=== PATIENT | female | born 1930 | race Caucasian/White ===

== ENCOUNTER 2017-03-17 08:57 | Day surgery (SDC) | payer MEDICARE, BC ==
--- NOTE | 2017-03-16 10:44 | CR ---
PREOPERATIVE EVALUATION AND CONSULTATION DATE OF CONSULTATION: 03/09/2017 CONSULTING PHYSICIAN: Richie Whiting MD REQUESTING SURGEON: Dr. Sophie Draper PROPOSED PROCEDURE: Uteroscopy completed at [facility]. CHIEF COMPLAINT: Preoperative evaluation prior to procedure. HISTORY OF PRESENT ILLNESS: Very pleasant 86-year-old patient of mine who presented today prior to a hysteroscopy. The patient is seeing Dr. Draper for what she describes as "dropped bladder." The patient does use a pessary at this point in time for what appears to be a complete uterovaginal prolapse, as diagnosed by Dr. Draper. She has significant incontinence of urine without the sensation of voiding. This is quite problematic and the patient has used a pessary with some success, but it does not meet her expectations. She is looking forward to Dr. Draper' evaluation. The patient has hypertension and left ventricular hypertrophy, but denies any chest pain on exertion, palpitations, or other cardiac symptoms. She is a nonsmoker, although she does have a history of smoking one pack a day of cigarettes on and off for a number of years, quitting in her early 60s. She has no history of asthma or bronchospasm. She denies symptoms of obstructive sleep apnea or history of issues with sleep apnea or malignant hypothermia. Otherwise , her blood pressure is generally controlled. She did have surgery for cataract in early 2015 without difficulty. She has chronic kidney disease with a baseline creatinine of 1.5. 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 Notes she generally feels well without any new symptoms or issues at this point in time. PAST MEDICAL HISTORY: 1. Hypertension with LVH. 2. Seasonal allergies. 3. Chronic kidney disease stage III. 4. Hyperlipidemia. 5. Vitamin D deficiency. 6. History of a basal cell cancer and a melanoma in situ of the face. 7. Prolapsed bladder and uterus. PAST SURGICAL HISTORY: 1. Right elbow surgery with Dr. Livingston 07/02/2011. 2. Ankle fracture [place] [address] Bass. 3. Spontaneous vaginal delivery times five. 4. Open reduction, internal fixation (ORIF) of the left wrist. 5. Cataract extraction, Dr. Duncan, [facility] 2015. MEDICATIONS: - amlodipine/benazepril 10/40 mg by mouth daily - hydrochlorothiazide 12.5 mg by mouth daily - metoprolol succinate 100 mg daily ALLERGIES: No known drug allergies. FAMILY HISTORY: Father of congestive heart failure. Mother of unknown causes, she had a mastectomy for breast cancer prior to that. She has a daughter who had breast cancer diagnosis at age 45. A second daughter with throat cancer but survived and is doing well. SOCIAL HISTORY: The patient is a . Her Preet at age 71 of an acute myocardial infarction. The patient was a homemaker. She has five children, all local. She has a brother, Bladimir Wright III, and a sister Osiris Ziegler, with whom she is close with. She is quite independent visiting with friends and going on trips with the family. She is a former smoker, smoked about one pack of cigarettes a day in her 20s until her 60s and then quit completely. She does have two ounces of scotch a day in the evening but no other alcohol. Functional capacity is limited without regular exercise. REVIEW OF SYSTEMS: As per history of present illness, otherwise 10-system review is negative. PHYSICAL EXAMINATION: VITAL SIGNS: Weight is 143 pounds, height of 5 feet 3 inches, pulse is 72, blood pressure 138/54, Body Mass Index (BMI) of 25.3, oxygen saturation were above 90. GENERAL: The patient appears her stated age. She appears at baseline health, well developed. No acute distress. Nontoxic. Alert and oriented times three. HEENT: Face shows a history of surgeries to the cancers but no other trauma. Normocephalic. Pupils are equal, round and reactive to light and accommodation. Extraocular muscles intact. No lesions of the lid or conjunctivae. Oral cavity , oropharynx are benign. External ears benign. NECK: Supple with no lymphadenopathy or thyromegaly. HEART: Regular rate and rhythm. S1, S2. LUNGS: Clear to auscultation bilaterally. No rales, rhonchi or wheezes. ABDOMEN: Soft, nontender, nondistended. EXTREMITIES: No clubbing, cyanosis or edema. PREOPERATIVE LABORATORIES: Completed on the way out and these included a normal CBC, normal CMP except BUN of 32, creatinine 1.3 (baseline), and a random blood sugar of 114. This gives her a GFR of 39. Vitamin D level of 52.2 (prior 23.5). ASSESSMENT AND PLAN: 1. Preoperative evaluation and consultation. At this point in time, the patient does not have any major risk factors. She does have known hypertension with left ventricular hypertrophy and generally this has been shown to be controlled, both as an outpatient and inpatient. We will continue to optimize this. Otherwise, no clear respiratory issues except for a history of smoking. No anesthesia issues. She is at low to intermediate risk for a low risk procedure. Expect however at age 86 that she will be monitored closely. If you have any other questions or concerns, please call me at [phone]. 2. Urinary symptoms due to cystocele and complete prolapse of the bladder and uterus. The patient looks forward to the procedure to evaluate and treat her present condition, having failed a pessary. 3. Hypertensive chronic kidney disease. Good control on present medication, we will continue. Chronic kidney disease is better than her baseline today at 1.3, we will continue to monitor and avoid nephrotoxins. 4. Vitamin D deficiency. Significant improvement on laboratories drawn after her visit. We will continue to monitor. 5. Personal history of neoplasm of the skin. The patient understands the issues regarding the skin cancer and has assured me that she will followup with dermatology. 6. Hypertensive heart disease without heart failure. The patient does have a known LVH. She however denies symptoms of CHF. We will continue to monitor and control her blood pressure appropriately. 7. Ongoing care. I am going to see her again as scheduled. We will followup on laboratories and if she has new problems or issues sooner, she will let us know. It is notable that her EKG did show sinus rhythm with a right axis deviation and a left ventricular hyperplasia, which was unchanged from her prior EKG on 06/01/2015. AMBER
[~2017-03-17] VITALS: Ht 160 cm; Wt 64.0 kg
[~2017-03-17 08:57] MED LIST: AMLO10CA29 PO; HYDR12CA PO; METO1TAB33 PO; PERC5TAB8 OR
[2017-03-17] MEDS ORDERED: LR 1,000 ML IV ONE (09:15)
[2017-03-17] MEDS ORDERED: MIDAZOLAM INJ 2 MG/2 ML VIAL (J2250) As Ordered ONE (09:50)
[2017-03-17] MEDS ORDERED: PROPOFOL 200 MG/20 ML VIAL As Ordered ONE (09:50)
[2017-03-17] MEDS ORDERED: LIDOCAINE 2% INJ 100 MG/5 ML SDV (FOR ANES.) As Ordered ONE (09:50)
[2017-03-17] MEDS ORDERED: fentaNYL 100 MCG/2 ML INJECTION (J3010) As Ordered ONE (09:50)
[2017-03-17] MEDS ORDERED: ONDANSETRON 4MG/2ML VIAL (J2405) As Ordered ONE (09:51)
[2017-03-17] MEDS ORDERED: BUPIVACAINE HCL 0.5% 30 ML VIAL As Ordered ONE (10:34)
[2017-03-17] MEDS ORDERED: ceFAZolin 1GM INJ (J0690) As Ordered ONE (10:56)
[2017-03-17] MEDS ORDERED: ePHEDrine SULFATE 25 MG/5 ML(5MG/ML) SYRINGE As Ordered ONE (11:21)
[2017-03-17] MEDS ORDERED: NORCO, ANEXSIA 5/325MG TABLET (HYDROcodone/ACETAMINOPHEN) PO PRN (12:15)
[2017-03-17] MEDS ORDERED: LR 1,000 ML IV SCH ×2 (12:15)
[2017-03-17] MEDS ORDERED: METOCLOPRAMIDE INJ 10MG/2ML VIAL (J2765) IV PRN (12:15)
[2017-03-17] MEDS ORDERED: ONDANSETRON 4MG/2ML VIAL (J2405) IV PRN (12:15)
[2017-03-17] MEDS ORDERED: fentaNYL 100 MCG/2 ML INJECTION (J3010) IV PRN (12:15)
[2017-03-17] MEDS ORDERED: IBUPROFEN 400 MG TAB PO PRN (12:15)
[2017-03-17 13:30] VITALS: BP 165/82
--- NOTE | 2017-03-17 16:46 | RO ---
DATE OF PROCEDURE: 03/17/2017 PREOPERATIVE DIAGNOSIS: Intrinsic sphincteric deficiency, stress urinary incontinence. POSTOPERATIVE DIAGNOSIS: Intrinsic sphincteric deficiency, stress urinary incontinence. PROCEDURE: Cystourethroscopy with periurethral bulking using Macroplastique. SURGEON: Dr. Sophie Draper SOLAR SALES REPRESENTATIVE AND ASSESSOR: None. ANESTHESIA: LMA. SPECIMENS: None. DESCRIPTION OF PROCEDURE: Brief description of procedure and findings: Ruchi was brought to the operating room where sufficient LMA anesthesia was induced, and she was prepped, draped and positioned in the usual sterile fashion. The pessary, of course, was removed and then she was prepped and, of course, at the end of the case, her pessary was replaced. After prepping and positioning, cystourethroscopy was carried out. The patient has a urethral caruncle. This was not treated in any way during the case and has normal bladder mucosa, normal ureteral orifices and a relatively short urethra consistent with her age and size. Periurethral Marcaine 2-1/2 mL of 0.50% Marcaine were placed laterally in the periurethral block and then the Macroplastique was set up and using the Macroplastique needle, 1-3/4 ampules of Macroplastique were placed at 4:30 and 8:30 with good coaptation of the urethral russo achieved with this injection. Of course, after that placement, the pessary was placed back in and the procedure was ended. Estimated blood loss for the procedure was essentially nothing. Fluid replacement was crystalloid. Complications: None. Condition and Disposition: Ruchi tolerated the procedure well and was recovering in the recovery room in good condition.
== END 2017-03-17 13:35 | disposition home or self-care (01) ==
LOC: M SDC 08:57
PROVIDERS: ATTEND Obstetrics & Gynecology
DX: N36.42 Intrinsic sphincter deficiency (ISD) (principal); N39.3 Stress incontinence (female) (male); I10 Essential (primary) hypertension; Z87.891 Personal history of nicotine dependence; Z79.899 Other long term (current) drug therapy
CPT/HCPCS: 51715; C1815; J0690; J2250; J2405; J3010

== ENCOUNTER 2017-10-14 14:21 | Emergency (ER) | payer MEDICARE, BC | END 2017-10-14 15:42 | disposition home or self-care (01) | LOC: M ED 14:21 | DX: T18.120A Food in esophagus causing compression of trachea, initial encounter (principal); X58.XXXA Exposure to other specified factors, initial encounter; Y92.89 Other specified places as the place of occurrence of the external cause; I10 Essential (primary) hypertension; E78.9 Disorder of lipoprotein metabolism, unspecified; Z79.899 Other long term (current) drug therapy | CPT/HCPCS: 99283 ==

== ENCOUNTER 2018-03-11 05:26 | Emergency (ER) | payer MEDICARE, BC ==
[2018-03-11 06:41] LABS: BASO % 0.7 % (0.0-1.0); EOS # 0.4 10^3/uL (0.0-0.50); EOS % 6.5 % (0.0-3.0); HEMATOCRIT 40.7 % (36.0-47.0); HEMOGLOBIN 13.4 g/dl (12.0-15.5); IMMATURE GRANULOCYTE % 0.3 % (0-3.0); LYMPH # 1.8 10^3/uL (1.5-4.5); LYMPH % 29.1 % (24.0-44.0); MEAN CORPUSCULAR HEMOGLOBIN 31.9 pg (27.0-33.0); MEAN CORPUSCULAR HGB CONC 32.9 g/dl (32.0-36.5); MEAN CORPUSCULAR VOLUME 96.9 fl (80.0-96.0); MONO # 0.5 10^3/uL (0.0-0.8); MONO % 8.1 % (0.0-5.0); NEUTROPHILS # 3.3 10^3/uL (1.8-7.7); NEUTROPHILS % 55.3 % (36.0-66.0); PLATELET COUNT, AUTOMATED 260 10^3/uL (150-450)
[2018-03-11] MEDS ORDERED: LIDOCAINE 1% MDV 20ML VIAL As Ordered (07:01)
[2018-03-11] MEDS: LIDOCAINE 1% SDV INJ 30 ML VIAL SC (07:03)
[2018-03-11 07:18] LABS: ANION GAP 9 MEQ/L (8-16); BLOOD UREA NITROGEN 36 MG/DL (7-18); CALCIUM LEVEL 8.7 MG/DL (8.8-10.2); CARBON DIOXIDE LEVEL 26 MEQ/L (21-32); CHLORIDE LEVEL 108 MEQ/L (98-107); CPK CREATINE PHOSPHOKINASE 78 U/L (26-192); CREATININE FOR GFR 1.35 MG/DL (0.55-1.30); GLOMERULAR FILTRATION RATE 39.7 (>32); GLUCOSE, FASTING 89 MG/DL (70-100); MB/CK RELATIVE INDEX 1.79 (< OR =4); POTASSIUM SERUM 3.9 MEQ/L (3.5-5.1); SODIUM LEVEL 143 MEQ/L (136-145); TROPONIN I < 0.02 NG/ML (< 0.10)
[2018-03-11] MEDS: NS 500 ML IV (07:18)
== END 2018-03-11 08:18 | disposition home or self-care (01) ==
LOC: M ED 05:26
DX: S01.412A Laceration without foreign body of left cheek and temporomandibular area, initial encounter (principal); W01.190A Fall on same level from slipping, tripping and stumbling with subsequent striking against furniture, initial encounter; Y92.013 Bedroom of single-family (private) house as the place of occurrence of the external cause; I10 Essential (primary) hypertension
CPT/HCPCS: 70450

== ENCOUNTER → 2018-04-27 | Outpatient (CLI) | payer MEDICARE, BC ==
[2018-04-29 00:58] LABS: (LD) FRACTION 1 25 % (17-32); (LD) FRACTION 2 32 % (25-40); (LD) FRACTION 3 22 % (17-27); (LD) FRACTION 4 9 % (5-13); (LD) FRACTION 5 12 % (4-20); LDH 183 IU/L (119-226)
== END ==
LOC: M LAB 10:42
DX: C43.62 Malignant melanoma of left upper limb, including shoulder (principal)
CPT/HCPCS: 71046

== ENCOUNTER → 2018-07-25 | Outpatient (CLI) | payer MEDICARE, BC ==
[~2018-07-25] MED LIST changes: +ACET-683 PO; +DIPH50CA PO; +GASTROGRAFIN SOLUTION 30ML (Q9963) As Ordered ONE; +ISOVUE-370 76% 100ML VIAL (Q9967) As Ordered ONE; +TRIA1CR80 EXT
--- NOTE | 2018-07-25 14:14 | REP ---
CT Head without and with contrast HISTORY: Melanoma CONTRAST: Isovue 371 100 ml COMPARISON: 03/11/2018 An area of decreased attenuation is present in the right occipital lobe. There is dilatation of the overlying cortical sulci and atrium and occipital horn of the right lateral ventricle. This represents an old infarction. Areas of decreased attenuation are present in the periventricular white matter. This represents small-vessel ischemic disease. There is no intraparenchymal hemorrhage, acute infarct, mass or midline shift. There is no abnormal enhancement. The ventricular system and cortical sulci as well as subarachnoid space in the posterior fossa are dilated consistent with mild volume loss. There is no extra cerebral collection. Mucosal thickening is present in the ethmoid , left frontal and sphenoid sinuses. Impression: 1. 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 2. Small vessel ischemic disease. 3. Mild volume loss. Electronically Signed by Dagoberto Smith MD 07/25/2018 02:05 P
--- NOTE | 2018-07-25 14:22 | REP ---
Clinical: History of melanoma. Technique: Axial contrast enhanced images from the lung bases to the pubic symphysis using oral (per protocol) and 100 ml Isovue 370 intravenous contrast material with delayed images of the abdomen as well as coronal and sagittal re-formations. Comparison: None. Findings: Lung bases are relatively clear with minimal presumed scarring in the lingula and right base. Calcified granuloma at the right lung base noted. Liver, spleen, pancreas, bilateral adrenal glands and left kidney appear normal. Cholelithiasis noted without evidence for acute cholecystitis. Splenic calcifications suggest prior granulomatous disease. Atrophic appearance to the right kidney. The enteric system is without obstruction or acute inflammatory process. Normal terminal ileum and appendix identified in the right lower quadrant. Colonic and sigmoid diverticulosis noted without acute diverticulitis. Pelvis demonstrates normal bladder and age-appropriate uterus/adnexa. Pessary noted in satisfactory position. No ascites. No free air. No significant intraperitoneal or retroperitoneal adenopathy. Significant atherosclerotic changes to the aorta and branch vessels including origins of the renal arteries which may be related to the above-mentioned atrophic right kidney. Osseous structures without focal osseous abnormality. Impression: 1. Evidence of prior granulomatous disease. 2. Cholelithiasis. 3. Sigmoid diverticula without acute diverticulitis. 4. Atrophic appearance the right kidney may be related to atherosclerotic disease and stenosis of the right renal artery. 5. No ascites, adenopathy, focal inflammatory changes or evidence for metastatic disease. Electronically Signed by Nikolai Santoyo MD 07/25/2018 02:14 P
--- NOTE | 2018-07-25 14:26 | REP ---
Clinical: Melanoma. Technique: Axial contrast enhanced images from the thoracic inlet to the upper abdomen with coronal and sagittal re-formations using 100 ml Isovue 370 intravenous contrast material. Comparison: None. Findings: Lung horvath demonstrate scattered age-related interstitial changes along with minimal linear scarring at the lingula and right lower lobe. Calcified granuloma identified in the right lower lobe. No consolidation, significant nodule or mass lesion. No pleural effusion. No pneumothorax. Tracheobronchial tree is patent. No significant adenopathy is appreciated. Extensive atherosclerotic disease to the thoracic aorta and coronary arteries noted without aortic aneurysm or cardiomegaly. Pericardial effusion. Surrounding musculoskeletal structures demonstrate age-related changes. There is a focal lytic area along the right side of the T11 vertebral body which is nonspecific and while this may represent age-related change, underlying metastatic focus cannot definitively be excluded. Impression: 1. Atherosclerotic disease to the thoracic aorta and coronary arteries. 2. No acute mediastinal or pleuroparenchymal process appreciated. 3. Evidence for prior granulomatous disease. 4. Lytic area along the right side of the T11 vertebral bodies. While this may represent chronic age-related change, solitary metastatic focus given the patient's history of malignancy cannot be excluded. Follow-up may be warranted. Electronically Signed by Nikolai Santoyo MD 07/25/2018 02:18 P
== END ==
LOC: M RAD 11:28
PROVIDERS: ATTEND Internal Medicine Medical Oncology
DX: C43.9 Malignant melanoma of skin, unspecified (principal); Z86.73 Personal history of transient ischemic attack (TIA), and cerebral infarction without residual deficits; I25.10 Atherosclerotic heart disease of native coronary artery without angina pectoris; I70.0 Atherosclerosis of aorta; M89.8X8 Other specified disorders of bone, other site; K80.20 Calculus of gallbladder without cholecystitis without obstruction; K57.30 Diverticulosis of large intestine without perforation or abscess without bleeding; N26.1 Atrophy of kidney (terminal)
CPT/HCPCS: 70470; 71260; 74177; Q9963; Q9967

== ENCOUNTER → 2018-08-03 | Outpatient (CLI) | payer MEDICARE, BC ==
[~2018-08-03] MED LIST changes: -GASTROGRAFIN SOLUTION 30ML (Q9963) As Ordered ONE; -ISOVUE-370 76% 100ML VIAL (Q9967) As Ordered ONE
--- NOTE | 2018-08-03 12:07 | REP ---
WHOLE BODY RADIONUCLIDE BONE SCAN: HISTORY: History of melanoma. Lytic lesion at T11 on CT scan. Evaluate for metastasis. Comparison CT study July 25, 2018. TECHNIQUE: 21.6 mCi technetium 99m MDP is injected and standard whole body bone scan imaging is acquired. SCINTIGRAPHIC FINDINGS: There is an arthritic uptake pattern seen in the wrists, elbows, AC joints, and knees as well as the feet bilaterally. There is degenerative disc and facet uptake pattern at L4-5 and L5-S1 in the lumbar spine. There is no abnormal uptake in or about the T11 vertebral body in the lower thoracic spine. The lack of increased uptake and the CT appearance suggests that the lytic lesion seen by CT at T11 is a benign hemangioma. Suggest followup. There is uptake in bilateral kidneys and the urinary bladder. No other abnormal uptake is seen. IMPRESSION: There is no evidence to suggest skeletal metastatic disease. No abnormal uptake is seen in the lower thoracic spine. 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 Consider followup CT study. Electronically Signed by Savage Brooks MD 08/03/2018 01:39 P
== END ==
LOC: M RAD 07:53
PROVIDERS: ATTEND Internal Medicine Medical Oncology
DX: C43.9 Malignant melanoma of skin, unspecified (principal)
CPT/HCPCS: 78306; A9503

== ENCOUNTER → 2019-11-19 | Outpatient (CLI) | payer MEDICARE, BC ==
[~2019-11-19] MED LIST changes: +AMLO10CA22 PO; -AMLO10CA29 PO; +CEPH500C PO; +IMIQ5CRE TOP; +[UNRECOGNIZED DRUG - CODE] EX
[2019-11-19 10:39] LABS: BASO % 0.5 % (0.0-1.0); EOS # 0.3 10^3/uL (0.0-0.5); EOS % 4.8 % (0.0-3.0); HEMATOCRIT 40.6 % (36.0-47.0); LYMPH # 2.1 10^3/uL (1.5-5.0); LYMPH % 34.9 % (24.0-44.0); MEAN CORPUSCULAR VOLUME 96.9 fl (80.0-96.0); MONO # 0.5 10^3/uL (0.0-0.8); MONO % 8.3 % (0.0-5.0); NEUTROPHILS # 3.1 10^3/uL (1.5-8.5); NEUTROPHILS % 51.3 % (36.0-66.0); PLATELET COUNT, AUTOMATED 247 10^3/uL (150-450); RED BLOOD COUNT 4.19 10^6/uL (4.00-5.40); WHITE BLOOD COUNT 6.1 10^3/uL (4.0-10.0)
[2019-11-19 11:13] LABS: ALBUMIN 3.5 GM/DL (3.2-5.2); BILIRUBIN,TOTAL 0.5 MG/DL (0.2-1.0); CALCIUM LEVEL 9.4 MG/DL (8.8-10.2); CREATININE FOR GFR 1.38 MG/DL (0.55-1.30); GLOMERULAR FILTRATION RATE 38.6 (>32); POTASSIUM SERUM 4.3 MEQ/L (3.5-5.1); TOTAL PROTEIN 6.6 GM/DL (6.4-8.2)
== END ==
LOC: M LAB 10:05
PROVIDERS: ATTEND Internal Medicine Medical Oncology
DX: C43.9 Malignant melanoma of skin, unspecified (principal)

== ENCOUNTER → 2020-06-02 | Outpatient (CLI) | payer MEDICARE, BC ==
[2020-06-02 10:54] LABS: BASO % 0.4 % (0.0-1.0); EOS # 0.4 10^3/uL (0.0-0.5); EOS % 5.2 % (0.0-3.0); HEMATOCRIT 42.2 % (36.0-47.0); HEMOGLOBIN 12.9 g/dl (12.0-15.5); LYMPH # 2.2 10^3/uL (1.5-5.0); LYMPH % 28.4 % (24.0-44.0); MEAN CORPUSCULAR HEMOGLOBIN 30.3 pg (27.0-33.0); MEAN CORPUSCULAR HGB CONC 30.6 g/dl (32.0-36.5); MEAN CORPUSCULAR VOLUME 99.1 fl (80.0-96.0); MONO # 0.5 10^3/uL (0.0-0.8); MONO % 6.8 % (0.0-5.0); NEUTROPHILS # 4.6 10^3/uL (1.5-8.5); NEUTROPHILS % 58.8 % (36.0-66.0); PLATELET COUNT, AUTOMATED 276 10^3/uL (150-450); RED BLOOD COUNT 4.26 10^6/uL (4.00-5.40); WHITE BLOOD COUNT 7.8 10^3/uL (4.0-10.0)
[2020-06-02 11:25] LABS: ALBUMIN 3.7 GM/DL (3.2-5.2); BILIRUBIN,TOTAL 0.5 MG/DL (0.2-1.0); CALCIUM LEVEL 9.1 MG/DL (8.8-10.2); CREATININE FOR GFR 1.41 MG/DL (0.55-1.30); GLOMERULAR FILTRATION RATE 37.6 (>32); POTASSIUM SERUM 4.5 MEQ/L (3.5-5.1); TOTAL PROTEIN 6.7 GM/DL (6.4-8.2)
== END ==
LOC: M LAB 10:20
PROVIDERS: ATTEND Internal Medicine Medical Oncology
DX: Z85.820 Personal history of malignant melanoma of skin (principal)

== ENCOUNTER → 2020-09-19 | Outpatient (REF) | payer MEDICARE, BC ==
[2020-09-19 17:16] LABS: APPEARANCE, URINE HAZY (CLEAR); BACTERIA, URINE AUTO 1+ (NEGATIVE); BILIRUBIN, URINE AUTO NEGATIVE (NEGATIVE); BLOOD, URINE BLOOD 2+ (NEGATIVE); COLOR, URINE YELLOW (YELLOW); GLUCOSE, URINE (UA) AUTO NEGATIVE (NEGATIVE); KETONE, URINE AUTO NEGATIVE (NEGATIVE); LEUKOCYTE ESTERASE, URINE AUTO 3+ (NEGATIVE); MUCUS, URINE SMALL (NEGATIVE); NITRITE, URINE AUTO NEGATIVE (NEGATIVE); PROTEIN, URINE AUTO NEGATIVE (NEGATIVE); RBC, URINE AUTO 35 /HPF (0-3); SPECIFIC GRAVITY URINE AUTO 1.011 (1.002-1.035); SQUAMOUS EPITHELIAL CELL UR AU 0 /HPF (0-6); UROBILINOGEN, URINE AUTO 0.2 mg/dL (0.0-2.0); WBC, URINE AUTO 41 /HPF (0-3)
== END ==
LOC: M LAB REF 16:28
PROVIDERS: ATTEND Obstetrics & Gynecology
DX: N39.3 Stress incontinence (female) (male) (principal)

== ENCOUNTER 2021-03-08 11:56 | Emergency (ER) | payer MEDICARE, BC ==
[~2021-03-08] VITALS: Ht 162.6 cm; Wt 57.6 kg
[2021-03-08] MEDS ORDERED: DOXY100T27 PO (12:02)
--- NOTE | 2021-03-08 12:53 | REP ---
INDICATION: swelling, tenderness, drainage R palm of hand COMPARISON: None. TECHNIQUE: AP, lateral, bilateral oblique views right hand. FINDINGS: Generalized age-related osteopenia and moderate to advanced arthritic degenerative changes are appreciated throughout the wrist and hand. No evidence for acute or subacute fracture. No dislocation. No obvious subcutaneous emphysema or foreign body. 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 No acute fracture/dislocation. No obvious evidence to suggest osteomyelitis. <Electronically signed by Nikolai Santoyo > 03/08/21 [id number]
[2021-03-08 12:58] LABS: BASO % 0.3 % (0.0-1.0); EOS # 0.6 10^3/uL (0.0-0.5); EOS % 7.4 % (0.0-3.0); HEMATOCRIT 40.1 % (36.0-47.0); HEMOGLOBIN 12.9 g/dl (12.0-15.5); LYMPH # 1.2 10^3/uL (1.5-5.0); LYMPH % 13.7 % (24.0-44.0); MEAN CORPUSCULAR HEMOGLOBIN 31.5 pg (27.0-33.0); MEAN CORPUSCULAR HGB CONC 32.2 g/dl (32.0-36.5); MONO # 0.6 10^3/uL (0.0-0.8); MONO % 7.4 % (2.0-8.0); NEUTROPHILS # 6.1 10^3/uL (1.5-8.5); PLATELET COUNT, AUTOMATED 309 10^3/uL (150-450); RED BLOOD COUNT 4.09 10^6/uL (4.00-5.40); WHITE BLOOD COUNT 8.6 10^3/uL (4.0-10.0)
[2021-03-08 13:16] LABS: ERYTHROCYTE SEDIMENTATION RATE 21 mm/hr (0-30)
[2021-03-08 13:17] VITALS: BP 145/64
== END 2021-03-08 13:29 | disposition home or self-care (01) ==
LOC: M ED 11:56
DX: L02.511 Cutaneous abscess of right hand (principal); L03.113 Cellulitis of right upper limb; I10 Essential (primary) hypertension; E78.5 Hyperlipidemia, unspecified; Z88.8 Allergy status to other drugs, medicaments and biological substances

== ENCOUNTER → 2021-07-08 | Outpatient (REF) | payer MEDICARE, BC ==
[~2021-07-08] MED LIST changes: -AMLO10CA22 PO; +AMLO10CA30 PO; +DOXY100T27 PO; +IMIQ1CRE6 TOP; -IMIQ5CRE TOP
== END ==
LOC: M LAB REF 16:17
PROVIDERS: ATTEND Obstetrics & Gynecology
DX: L03.116 Cellulitis of left lower limb (principal)

== ENCOUNTER → 2021-07-13 | Outpatient (REF) | payer MEDICARE, BC | LOC: M LAB REF 11:38 | PROVIDERS: ATTEND Family Medicine | DX: N18.30 Chronic kidney disease, stage 3 unspecified (principal) ==

== ENCOUNTER → 2022-09-03 | Outpatient (CLI) | payer MEDICARE, BC | LOC: M WUC 11:22 | PROVIDERS: ATTEND Nurse Practitioner Family | DX: R05.9 Cough, unspecified (principal) ==